=== PATIENT | female | born 1955 | race Caucasian/White ===

== ENCOUNTER 2016-11-13 12:01 | Observation (INO) | payer MEDICARE, OTHER ==
[~2016-11-13] VITALS: Ht 152.4 cm; Wt 74.1 kg
--- NOTE | 2016-11-13 12:17 | ERA ---
ER Documentation Chief Complaint Date/Time DATE: 11/13/16 TIME: 12:17 Chief Complaint chest pain HPI The patient is a 61-year-old female, presenting with left sided chest pressure intermittently for the last 3 days, worse about 1 hour prior to arrival, associated with palpitation, and left arm numbness, 10. She was treated with aspirin 325 mg p.o. and one nitroglycerin spray with good response. She denies any chest pain or pressure at this time. She denies chest pain with exertion or vomiting or diaphoresis. She denies abdominal pain, vomiting, dysuria, diarrhea. She does not smoke nor drink Past medical history: Hypertension, diabetes mellitus, history of thyroid cancer Past surgical history: Thyroid surgery ROS All systems reviewed and are negative except as per history of present illness. Physical Exam Vitals Vital Signs Date Time Temp Pulse Resp B/P Pulse Ox O2 Delivery O2 Flow Rate FiO2 11/13/16 12:47 75 16 159/74 98 Room Air 11/13/16 12:17 98.5 95 18 203/106 98 Physical Exam Const: No acute distress. Head: Atraumatic. Eyes: Normal Conjunctiva. ENT: Normal External Ears, Nose and Mouth. Neck: Full range of motion. No meningismus. Resp: Clear to auscultation bilaterally. Cardio: Regular rate and rhythm, no murmurs. Abd: Soft, non distended, normal bowel sounds, non tender. Skin: No petechiae or rashes. Back: No midline or flank tenderness. Ext: No cyanosis, or edema. Neur: Awake and alert. No focal deficit Psych: Normal Mood and Affect. Result Diagram: 11/13/16 1230 11/13/16 1230 Results 24 hrs Laboratory Tests Test 11/13/16 12:30 Activated Partial Thromboplast Time 26.9Sec Anion Gap 17 Basophils # 0.010^3/ul Basophils % 0.3% Blood Urea Nitrogen 17mg/dl Calcium Level 9.2mg/dl Carbon Dioxide Level 28mmol/L Chloride Level 102mmol/L Creatinine 0.68mg/dl Eosinophils # 0.110^3/ul Eosinophils % 0.9% Glucose Level 137mg/dl Hematocrit 39.9% Hemoglobin 13.8g/dl INR International Normalized Ratio 0.97 Lymphocytes # 3.010^3/ul Lymphocytes % 37.0% Mean Corpuscular Hemoglobin 29.0pg Mean Corpuscular Hemoglobin Concent 34.5g/dl Mean Corpuscular Volume 84.2fl Mean Platelet Volume 9.7fl Monocytes # 0.610^3/ul Monocytes % 6.9% Neutrophils # 4.410^3/ul Neutrophils % 54.9% Nucleated Red Blood Cells # 0.010^3/ul Nucleated Red Blood Cells % 0.0/100WBC Platelet Count 35794^3/UL Potassium Level 3.9mmol/L Prothrombin Time 12.9Sec Prothrombin Time Ratio 1.0 Red Blood Count 4.7410^6/ul Red Cell Distribution Width 12.7% Sodium Level 143mmol/L Troponin I < 0.012ng/ml White Blood Count 8.010^3/ul Current Medications Medications (Trade) Dose Ordered Sig/Zacarias Route PRN Reason Start Time Stop Time Status Last Admin Dose Admin Nitroglycerin (Nitroglycerin 2% Oint) 1 inch ONCE ONCE TD 11/13/16 14:00 11/13/16 14:01 Procedures/MDM EKG: Read by emergency physician Rate/Rhythm: Normal Sinus Rhythm 78 beats per min QRS, ST, T-waves: No ST elevation, no T wave inversion, LAD, inferior Q waves Impression: Abnormal EKG [place] [id number] Radiology Main Line: [phone] DIAGNOSTIC IMAGING REPORT Patient: MALICK JOSEPH : 1955 Age: 61 Sex: F MR #: [id number] DOS: 11/13/16 [facility] Ordering MD: RAUL AMBROSIO MD Location: E/R Room/Bed: PROCEDURE: XR Chest AP portable CLINICAL INDICATION: Chest pain TECHNIQUE: An AP portable radiograph of the chest was submitted. COMPARISON: None. FINDINGS: Support Hardware: None Cardiovascular: The cardiovascular silhouette appears unremarkable. Lung Curry: The lung curry appear clear with no nodule, alveolar infiltrate, for a interstitial prominence evident. Pleural Spaces: No pneumothorax or pleural effusion is identified. Osseous Structures: The osseous structures appear intact. Soft Tissues: The soft tissues appear generous. IMPRESSION: Unremarkable portable chest. Physician Matt Date Time Electronically viewed and signed by Physician Matt on 11/13/2016 12:37 RH/ CC: RAUL AMBROSIO MD MEDICAL MAKING DECISION: The patient is a 61-year-old female with multiple cardiac risk factors, presenting with acute chest pain that is concerning for ACS. She was treated with 1 inch of nitroglycerin ointment with good response. The differential diagnoses considered include but are not limited to acute coronary syndrome, acute myocardial infarction, pericarditis, pulmonary embolism , aortic dissection, pneumonia, pleural effusion, pneumothorax, GERD, chest wall pain. Departure Diagnosis: Primary Impression: Chest pain Condition: Stable Comments I discussed the findings with the patient. I discussed the patient with the on- call hospitalist Dr. Sims who was made aware of the lab, the treatment, the patient condition. The patient is admitted to telemetry at 1:45 PM RAUL AMBROSIO MD Nov 13, 2016 12:17
--- NOTE | 2016-11-13 12:38 | RADRPT ---
PROCEDURE: XR Chest AP portable CLINICAL INDICATION: Chest pain TECHNIQUE: An AP portable radiograph of the chest was submitted. COMPARISON: None. FINDINGS: Support Hardware: None Cardiovascular: The cardiovascular silhouette appears unremarkable. Lung Carroll: The lung carroll appear clear with no nodule, alveolar infiltrate, for a interstitial pr ominence evident. Pleural Spaces: No pneumothorax or pleural effusion is identified. Osseous Structures: The osseous structures appear intact. Soft Tissues: The soft tissues appear generous. IMPRESSION: Unremarkable portable chest. Physician Matt Date Time Electronically viewed and signed by Andrez Reyes Physician on 11/13/2016 12:37 RH/
[2016-11-13 12:43] LABS: BASOPHILS % 0.3 % (0.0-2.0); EOSINOPHILS # 0.1 10^3/ul (0.0-0.5); EOSINOPHILS % 0.9 % (0.0-7.0); HEMATOCRIT 39.9 % (37.0-47.0); HEMOGLOBIN 13.8 g/dl (12.0-16.0); MEAN CORPUSCULAR HGB CONC 34.5 g/dl (32.0-37.0); MEAN CORPUSCULAR VOLUME 84.2 fl (82.0-101.0); MEAN PLATELET VOLUME 9.7 fl (7.4-10.4); MONOCYTE # 0.6 10^3/ul (0.3-0.9); MONOCYTES % 6.9 % (0.0-11.0); NEUTROPHIL # 4.4 10^3/ul (1.6-7.5); NEUTROPHILS % 54.9 % (39.0-77.0); PLATELET COUNT 208 10^3/UL (140-440); RED BLOOD COUNT 4.74 10^6/ul (4.20-5.40); RED CELL DISTRIBUTION WIDTH 12.7 % (11.5-14.5)
[2016-11-13 12:46] LABS: CONDITION 1
[2016-11-13 13:13] LABS: INR 0.97; PROTIME 12.9 Sec (12.2-14.2)
[2016-11-13 13:14] LABS: PARTIAL THROMBOPLASTIN TIME 26.9 Sec (25.0-35.0)
[2016-11-13 13:19] LABS: CHLORIDE 102 mmol/L (97-110); SODIUM 143 mmol/L (135-144)
[2016-11-13 13:20] LABS: POTASSIUM 3.9 mmol/L (3.5-5.1)
[2016-11-13 13:22] LABS: ANION GAP 17 (8-16); BLOOD UREA NITROGEN 17 mg/dl (7-20); CARBON DIOXIDE 28 mmol/L (21-31); CREATININE 0.68 mg/dl (0.44-1.00)
[2016-11-13 13:23] LABS: CALCIUM 9.2 mg/dl (8.4-10.2); GLUCOSE 137 mg/dl (70-220)
[2016-11-13 13:37] LABS: TROPONIN-I < 0.012 ng/ml (0.00-0.12)
[2016-11-13] MEDS ORDERED: NITROGLYCERIN 2% 1 GM OINT PKT TD ONE (14:00)
[2016-11-13] MEDS ORDERED: METF1000 PO (14:31)
[2016-11-13] MEDS ORDERED: METO50TA16 PO (14:32)
[2016-11-13] MEDS ORDERED: ATOR20TA38 PO (14:32)
[2016-11-13] MEDS ORDERED: ASPI-664 PO (14:32)
[2016-11-13] MEDS ORDERED: NOVO7030 SC ×2 (14:33)
--- NOTE | 2016-11-13 17:11 | HP ---
Date/Time of Note Date/Time of Note DATE: 11/13/16 TIME: 16:59 Assessment/Plan VTE Prophylaxis VTE Prophylaxis Intervention: LMWH Lines/Catheters IV Catheter Type (from Nrs): Saline Lock Assessment/Plan Assessment/Plan 61 yo F with 1. Chest Pain r/o ACS 2. DM 2 3. Post surgical hypothyroidism PLAN: Telemetry admission, trend cardiac enzymes, 2d echo if none recently and possible cardiology consult for stress test. oxygen and nitroglycerin therapy as needed. Daily aspirin if no allergy or bleeding risk. Get lipid profile, magnesium and TSH levels in am. PROPHYLAXIS: pepcid / SCDs HPI/ROS Admit Date/Time Admit Date/Time 11/13/16 Hx of Present Illness PRESENTING COMPLAINT: Chest pain HISTORY OF PRESENTING COMPLAINT: 61 yo F with a PMH of HTN and DM who presents to ER with a 1 day hx of L sided CP, pressure like, no hx of similar and relieved by asa and nitro given in ER. She is being admitted for further workup. ROS 12 point review if systems was done and pertinent findings are as noted. Constitutional: No fatigue, No nausea, No poor po ENT: no complaints Respiratory: no complaints Gastrointestinal: no complaints Skin: no complaints Neurologic: no complaints Psychological: anxiety PMH/Family/Social Past Medical History Past medical history: Hypertension, diabetes mellitus, history of thyroid cancer Past Surgical History Past surgical history: Thyroid surgery Family History Significant Family History: heart disease, hypertension Social History Alcohol Use: none Smoking Status: Never smoker (but exposed to heavy secondhand smoke) Drug Use: none Exam/Review of Systems Vital Signs Vitals VS - Last 72 Hours, by Label Date Time Temp Pulse Resp B/P Pulse Ox O2 Delivery O2 Flow Rate FiO2 11/13/16 16:49 75 18 140/73 98 Room Air 11/13/16 14:50 71 18 150/85 100 Room Air 11/13/16 12:47 75 16 159/74 98 Room Air 11/13/16 12:17 98.5 95 18 203/106 98 Vital Signs Date Time Temp Pulse Resp B/P Pulse Ox O2 Delivery O2 Flow Rate FiO2 11/13/16 16:49 75 18 140/73 98 Room Air 11/13/16 12:17 98.5 Exam Head: atraumatic, normocephalic Eyes: nl conjunctiva ENMT: mucosa pink and moist Neck: supple Respiratory: clear to auscultation Cardiovascular: regular rate and rhythm, No murmurs/extra sounds Gastrointestinal: bowel sounds, non-tender, soft Musculoskeletal: nl extremities to inspection Neurological: nl mental status, nl speech, No focal weakness Labs Result Diagram: 11/13/16 1230 11/13/16 1230 Procedures Procedures Laboratory Tests Test 11/13/16 12:30 11/13/16 16:21 Activated Partial Thromboplast Time 26.9Sec Anion Gap 17 Basophils # 0.010^3/ul Basophils % 0.3% Blood Urea Nitrogen 17mg/dl Calcium Level 9.2mg/dl Carbon Dioxide Level 28mmol/L Chloride Level 102mmol/L Creatinine 0.68mg/dl Eosinophils # 0.110^3/ul Eosinophils % 0.9% Glucose Level 137mg/dl Hematocrit 39.9% Hemoglobin 13.8g/dl INR International Normalized Ratio 0.97 Lymphocytes # 3.010^3/ul Lymphocytes % 37.0% Mean Corpuscular Hemoglobin 29.0pg Mean Corpuscular Hemoglobin Concent 34.5g/dl Mean Corpuscular Volume 84.2fl Mean Platelet Volume 9.7fl Monocytes # 0.610^3/ul Monocytes % 6.9% Neutrophils # 4.410^3/ul Neutrophils % 54.9% Nucleated Red Blood Cells # 0.010^3/ul Nucleated Red Blood Cells % 0.0/100WBC Platelet Count 19617^3/UL Potassium Level 3.9mmol/L Prothrombin Time 12.9Sec Prothrombin Time Ratio 1.0 Red Blood Count 4.7410^6/ul Red Cell Distribution Width 12.7% Sodium Level 143mmol/L Troponin I < 0.012ng/ml White Blood Count 8.010^3/ul Bedside Glucose 61mg/dL Current Medications Medications (Trade) Dose Ordered Sig/Zacarias Route PRN Reason Start Time Stop Time Status Last Admin Dose Admin Nitroglycerin (Nitroglycerin 2% Oint) 1 inch ONCE ONCE TD 11/13/16 14:00 11/13/16 14:01 DC 11/13/16 14:50 1 INCH PROCEDURE: XR Chest AP portable CLINICAL INDICATION: Chest pain TECHNIQUE: An AP portable radiograph of the chest was submitted. COMPARISON: None. FINDINGS: Support Hardware: None Cardiovascular: The cardiovascular silhouette appears unremarkable. Lung Carroll: The lung carroll appear clear with no nodule, alveolar infiltrate, for a interstitial prominence evident. Pleural Spaces: No pneumothorax or pleural effusion is identified. Osseous Structures: The osseous structures appear intact. Soft Tissues: The soft tissues appear generous. IMPRESSION: Unremarkable portable chest. Andrez Reyes, Physician Date Time Electronically viewed and signed by Andrez Reyes Physician on 11/13/2016 12:37 I reviewed EKG Rate / Rhythm: Normal Sinus Rhythm 78 beats per min QRS, ST, T-waves: No ST elevation, no T wave inversion, LAD, inferior Q waves Note: Abnormal EKG MARYANN STRICKLAND 20, 2017 17:09
[2016-11-13] MEDS ORDERED: GLUCOSE GEL 15 GRAM TUBE BUCCAL PRN (18:00)
[2016-11-13] MEDS ORDERED: GLUCOSE GEL 15 GRAM TUBE PO PRN ×2 (18:00)
[2016-11-13] MEDS ORDERED: DEXTROSE 50% 50 ML SYRINGE IV PRN ×2 (18:00)
[2016-11-13] MEDS ORDERED: GLUCAGON 1 MG INJ IM PRN (18:00)
[2016-11-13 19:35] LABS: CREATINE KINASE 33 IU/L (23-200)
[2016-11-13 19:45] LABS: CK-MB 0.48 ng/ml (0.0-2.4)
[2016-11-13] MEDS: INSULIN ASPART [NOVOLOG] 3 ML PEN SC SCH ×3 (19:46→19:54)
[2016-11-13] MEDS: metFORMIN 500 MG TAB PO SCH (19:47)
[2016-11-13] MEDS: METOPROLOL 50 MG TAB PO SCH (19:47)
--- NOTE | 2016-11-13 19:51 | CONS ---
DATE OF ADMISSION: 11/13/2016 DATE OF CONSULTATION: TYPE OF CONSULTATION: Cardiology. REFERRING: Dr. Strickland. REASON FOR CONSULTATION: Chest pain. CHIEF COMPLAINT: Chest pain and palpitation. HISTORY OF PRESENT ILLNESS: Thank you for this referral. History obtained from the patient, in dis cussion with her family. This is a pleasant 58-year-old [place] female with history of hypertensio n, diabetes, dyslipidemia, who presented complaint. The patient said she was she starte d having severe anterior chest pressure. It lasted about 15 minutes or so. The primary care gave h er medication. It went away. She also had palpitations, and her heart was beating very fast. The patient said she has had palpitation before, has had workup for arrhythmia including a stress test d one about a year ago in some doctor's private office, which was negative. The pain has resolved now . The patient denies any exertional chest pain normally, but is not very active. PAST MEDICAL HISTORY: Diabetes, hypertension, dyslipidemia, history of thyroid disorder. SURGICAL HISTORY: Status post thyroid surgery. SOCIAL HISTORY: The patient denies any active tobacco, alcohol, or drug abuse. FAMILY HISTORY: The patient denies any family history of coronary artery disease. ALLERGIES: PENICILLIN. MEDICATIONS AT HOME: Include: 1. Lipitor. 2. Toprol-XL 50. 3. Aspirin. 4. Insulin. 5. Metformin. REVIEW OF SYSTEMS: She denied all other except for above-mentioned. PHYSICAL EXAMINATION: VITAL SIGNS: Temperature 98.5, heart rate of 75, blood pressure 140/75, respiration rate of 18, sat urating 98%. Blood pressure on admission was 203/106. HEENT: Normocephalic, atraumatic, , in no acute distress. Pupils equal and round. CARDIOVASCULAR: Regular rate and rhythm, systolic murmur. PULMONARY: With no wheezes or rhonchi. GASTROINTESTINAL: Soft, nontender. EXTREMITIES: With lower extremity edema. NEUROLOGIC: Awake, alert x3, nonfocal. PSYCHIATRIC: Calm and very pleasant. DERMATOLOGIC: With no active bleeding sites. IMAGING: EKG shows normal sinus rhythm, poor R-wave progression, low voltage. Chest x-ray shows un remarkable portable chest x-ray. LABORATORY: Showed cardiac enzymes negative x1. Troponin less than 0.012. Sodium 143, potassium 3 .9, BUN of 17, creatinine 0.67, glucose of 137. WBC of 8.0, hemoglobin 13.8, platelets of 208. ASSESSMENT AND PLAN 1. Chest pain syndrome, rule acute coronary syndrome. 2. Diabetes. 3. Hypertension. 4. Palpitations, rule out arrhythmia. 5. History of dyslipidemia. 6. Obesity. 7. History of thyroid disorder. RECOMMENDATIONS: Serial cardiac enzymes will be obtained to rule out myocardial infarction. Current ly, patient is completely chest pain-free. Her home beta blockers, statin, aspirin was initiated al ready and will be continued. Diabetic management as per internal medicine. Lexiscan test will be o rdered for tomorrow as long as the cardiac enzymes are negative. Echocardiogram has been ordered pr eviously already. We will continue to follow along with you. Thank you for this referral. Dictated By: LEIGHA OTT MD AV/NTS Conf#: [id number] DID#: [id number] CC: MARYANN STRICKLAND MD;*EndCC*
[2016-11-13 19:54] LABS: TROPONIN-I < 0.012 ng/ml (0.00-0.12)
[2016-11-13] MEDS ORDERED: INSULIN GLARGINE [LANtus] 3 ML PEN SC SCH (20:00)
[2016-11-13] MEDS ORDERED: ATORVASTATIN 20 MG TAB PO SCH (21:00)
[2016-11-13 21:02] VITALS: PULSE 71
[2016-11-13 21:16] VITALS: BP_SYST 151; BP_SYST 176; BP_DIAS 67; BP_DIAS 81; RESP 20
[2016-11-13 21:37] LABS: ADD UMIC NO; URINE BILIRUBIN (Dip) NEGATIVE (NEGATIVE); URINE BLOOD (Dip) NEGATIVE (NEGATIVE); URINE COLOR LT. YELLOW (YELLOW); URINE KETONES (Dip) NEGATIVE (NEGATIVE); URINE LEUKOCYTE ESTERASE (Dip) NEGATIVE (NEGATIVE); URINE NITRITE (Dip) NEGATIVE (NEGATIVE); URINE TOTAL PROTEIN (Dip) NEGATIVE (NEGATIVE); URINE UROBILINOGEN (Dip) 0.2 E.U./dL (0.1-1.0)
[2016-11-13 22:00] VITALS: Ht 152.4 cm; Wt 74.1 kg
[2016-11-13] MEDS ORDERED: ACETAMINOPHEN 325 MG TAB PO PRN (22:30)
[2016-11-14] VITALS (10 sets, daily range): BP systolic 114–143; BP diastolic 59–77; PULSE 65–84; RESP 15–18
[2016-11-14 01:10] LABS: CREATINE KINASE 32 IU/L (23-200)
[2016-11-14 01:19] LABS: CK-MB 0.36 ng/ml (0.0-2.4)
[2016-11-14 01:22] LABS: TROPONIN-I < 0.012 ng/ml (0.00-0.12)
[2016-11-14 07:24] LABS: ALBUMIN 3.8 g/dl (3.3-4.9)
[2016-11-14 07:25] LABS: POTASSIUM 4.2 mmol/L (3.5-5.1)
[2016-11-14 07:27] LABS: BILIRUBIN,INDIRECT 0.2 mg/dl (0-1.1); BILIRUBIN,TOTAL 0.2 mg/dl (0.2-1.3); CREATININE 0.65 mg/dl (0.44-1.00); TOTAL PROTEIN 6.5 g/dl (6.1-8.1)
[2016-11-14 07:28] LABS: BASOPHILS % 0.4 % (0.0-2.0); CALCIUM 9.2 mg/dl (8.4-10.2); EOSINOPHILS # 0.1 10^3/ul (0.0-0.5); EOSINOPHILS % 1.4 % (0.0-7.0); HEMOGLOBIN 13.1 g/dl (12.0-16.0); LYMPHOCYTES # 3.2 10^3/ul (0.8-2.9); LYMPHOCYTES % 40.8 % (15.0-51.0); MAGNESIUM 1.8 mg/dl (1.7-2.5); MEAN CORPUSCULAR HEMOGLOBIN 29.2 pg (29.0-33.0); MEAN CORPUSCULAR HGB CONC 34.4 g/dl (32.0-37.0); MEAN CORPUSCULAR VOLUME 84.7 fl (82.0-101.0); MEAN PLATELET VOLUME 9.4 fl (7.4-10.4); MONOCYTE # 0.6 10^3/ul (0.3-0.9); MONOCYTES % 8.2 % (0.0-11.0); NEUTROPHIL # 3.8 10^3/ul (1.6-7.5); NEUTROPHILS % 49.2 % (39.0-77.0); PLATELET COUNT 205 10^3/UL (140-440); RED BLOOD COUNT 4.48 10^6/ul (4.20-5.40); UNCORRECTED WBC 7.8 10^3/ul (4.8-10.8); WHITE BLOOD COUNT 7.8 10^3/ul (4.8-10.8)
[2016-11-14 07:29] LABS: CHOL/HDL RATIO 3.8 RATIO
[2016-11-14 07:45] LABS: CONDITION 1
[2016-11-14 07:58] LABS: THYROID STIMULATING HORMONE 2.81 MIU/L (0.465-4.680)
[2016-11-14] MEDS: metFORMIN 500 MG TAB PO SCH (08:00)
[2016-11-14] MEDS: INSULIN ASPART [NOVOLOG] 3 ML PEN SC SCH ×4 (08:00→14:06)
[2016-11-14] MEDS: METOPROLOL 50 MG TAB PO SCH (08:05)
[2016-11-14] MEDS ORDERED: ENOXAPARIN 40 MG/0.4 ML SYG SC SCH (09:00)
[2016-11-14] MEDS ORDERED: ASPIRIN (EC) 81 MG TAB PO SCH (09:00)
[2016-11-14] MEDS ORDERED: REGADENOSON 0.4 MG/5 ML SYG ONE (09:21)
--- NOTE | 2016-11-14 09:32 | RADRPT ---
Echocardiogram Report Patient Name: MALICK JOSEPH Gender: Female Date: 1955 Study Date: 14-Nov-2016 [employer] Clerk: Chandler Parker [facility] Location: 5548 Ref. Physician: LEIGHA PERALES Quality: Good Procedures: Transthoracic echocardiogram with complete 2D, M-Mode, and doppler examination. Indications: Chest Pain. 2D/M Mode Doppler Measurement Value Normal Ranges Measurement Value Normal Ranges LVIDd 2D 4.8 3.5 - 5.6 cm AV Peak Jose 1.4 m/sec LVIDs 2D 2.8 2.1 - 4.1 cm AV Peak PG 7.0 mmHg FS 2D 42.9 % LVOT Peak Jose 0.8 m/sec LVPWd 2D 0.8 0.6 - 1.1 cm LVOT Peak PG 2.0 mmHg IVSd 2D 1.0 0.6 - 1.1 cm MV E Peak Jose 0.7 m/sec IVS/LVPW 2D 1.2 MV A Peak Jose 0.8 m/sec AoR Diam 2D 2.8 2.0 - 3.7 cm MV E/A 0.8 LA/Ao 2D 1 0 - 1 MV Decel Time 158 msec EDV 2D 112.0 cm3 MV E/A 0.8 ESV 2D 20.8 cm3 TR Peak Jose 2.2 m/sec LA Dimen 2D 3.4 2.3 - 4.0 cm TR Peak PG 20.0 mmHg RVSP 23.0 mmHg Findings Left Ventricle: Normal left ventricular systolic function. Normal left ventricular cavity size. Normal left ventricular wall thickness. Ejection fraction is visually estimated at 65 %. Tissue Doppler/Mitral Doppler indices are consistent with impaired relaxation (Stage I diastolic dysfunction). Right Ventricle: Normal right ventricular size. Normal right ventricular systolic function. Left Atrium: The left atrium is normal in size. Right Atrium: The right atrium is normal in size. Mitral Valve: Mitral valve leaflets appear mildly thickened. Mild mitral annular calcification. Trace mitral regurgitation. Aortic Valve: Normal appearance of the aortic valve. No significant aortic stenosis or insufficiency. Tricuspid Valve: Normal appearance of the tricuspid valve. Estimated peak PA systolic pressure 23 mmHg. There is trace tricuspid regurgitation. Pulmonic Valve: Normal pulmonic valve appearance. Pericardium: Normal pericardium with no significant pericardial effusion. Aorta: Normal aortic root. IVC: Normal size and normal respiratory collapse consistent with normal right atrial pressure. Conclusions 1.Normal left ventricular systolic function. Normal left ventricular cavity size. Normal left ventricular wall thickness. Ejection fraction is visually estimated at 65 %. Tissue Doppler/Mitral Doppler indices are consistent with impaired relaxation (Stage I diastolic dysfunction). 2.The left atrium is normal in size. 3.Mitral valve leaflets appear mildly thickened. Mild mitral annular calcification. Trace mitral regurgitation. 4.Normal appearance of the aortic valve. No significant aortic stenosis or insufficiency. 5.Normal appearance of the tricuspid valve. Estimated peak PA systolic pressure 23 mmHg. There is trace tricuspid regurgitation. Electronically Signed By: Leigha Perales 14-Nov-2016 09:30:42 -0800 Patient Name: MALICK JOSEPH Study Date: 14-Nov-2016 [id number]
--- NOTE | 2016-11-14 11:51 | PN ---
DATE: 11/14/2016 CARDIOLOGY FOLLOWUP NOTE SUBJECTIVE: The patient with no chest pain or pressure overnight. No palpitations, feeling better. MEDICATIONS: Reviewed as per medical reconciliation, personally reviewed. PHYSICAL EXAMINATION: VITAL SIGNS: Temperature 97.9, heart rate of 81, blood pressure 122/66, respiratory rate of 18, sat urating 98%. HEENT: Normocephalic, atraumatic. Pupils are equal. CARDIOVASCULAR: Regular rate and rhythm. PULMONARY: With no wheezes. GASTROINTESTINAL: Soft, nontender. EXTREMITIES: Trivial edema. NEUROLOGIC: Awake and alert. PSYCHIATRIC: Appears to be calm and pleasant. LABORATORY: WBC of 7.8, hemoglobin 13.1, platelets of 205. Sodium 142, potassium 4.2, BUN of 20, c reatinine 0.65, glucose of 140. Cholesterol 172, LDL of 88, HDL 45. ASSESSMENT AND PLAN 1. Chest pain syndrome, rule acute coronary syndrome. 2. Hypertension. 3. Diabetes. 4. History of palpitation, currently remains in sinus. 5. Dyslipidemia. 6. Obesity. 7. Thyroid disorder. RECOMMENDATIONS: We will continue with the current cardiac care. Lexiscan test has been scheduled for today. Echocardiogram was obtained which was personally reviewed, showed normal LV systolic func tion. Discharge planning if the stress test is negative, otherwise if stress test shows an abnormal ity including significant ischemia, we will plan for the cardiac catheterization. Dictated By: LEIGHA OTT MD AV/PEGGY Conf#: [id number] DID#: [id number] CC: MARYANN STRICKLAND MD;*End*
--- NOTE | 2016-11-14 12:39 | RADRPT ---
PROCEDURE: Nuclear medicine myocardial perfusion scan CLINICAL INDICATION: Chest pain TECHNIQUE: 29.9 mCi of technetium 99m Cardiolite was administered for the stress study. 10.3 mCi of technetium 99m Cardiolite was administered for the resting study. The patient was stressed with 0 .4 mg of Lexiscan. Images were reviewed in the short axis, vertical long axis, and horizontal long axis views. Wall motion was assessed and ejection fraction was calculated as well. Images were revi ewed on a high-resolution PACS workstation. COMPARISON: None available FINDINGS: Left ventricular size is within normal limits. There is moderate soft tissue and bowel attenuation artifact. The stress tomographic images demonstrate a normal pattern of perfusion. The resting evert ographic images demonstrate a similar pattern. There is no evidence for reversible ischemia. Wall motion is normal. The ejection fraction is calculated at 78%. IMPRESSION: 1. Negative myocardial perfusion scan. 2. There is no evidence for reversible ischemia. 3. Normal wall motion with normal ejection fraction of 78%. RPTAT: HMJB .Enoch Brandt MD, MD Date Time Electronically viewed and signed by .Enoch Brandt MD, MD on 11/14/2016 12:39 .B/
[2016-11-14] MEDS ORDERED: MAGNESIUM CITRATE 300 ML BTL PO ONE (14:00)
[2016-11-14] MEDS ORDERED: NOVO3I SC ×2 (14:43→17:23)
[2016-11-14] MEDS ORDERED: LANT3I SC (14:43)
[2016-11-14] MEDS ORDERED: BENA20TA48 PO (14:43)
[2016-11-14] MEDS ORDERED: ATOR20TA38 PO (14:43)
--- NOTE | 2016-11-14 14:44 | PDOCDIS ---
Discharge Instructions DIAGNOSIS Discharge Diagnosis: Angina CONDITION Patient Condition: Stable HOME CARE INSTRUCTIONS: Special Diet: 1800 calorie diet ACTIVITY: Activity Restrictions: Slowly Increase Activity Rest between Activity FOLLOW UP/APPOINTMENTS Appointments Followup with your primary doctor within the next 1-2 weeks. If you don't have one please let someone know, we can give you resources that may help you pick one. You may also call your insurance company to assign one to you. Review your medication list with your nurse before leaving and if you need new prescriptions please let your nurse know. I may have made changes to your home medications or given you new prescriptions , please let your primary doctor know as well. Stay compliant with your medications and report any side effects to your PCP or pharmacist. Return to the ER if you have any concerns and cannot reach your doctors or call your insurance company, they usually have a nurse that can help you. MARYANN STRICKLAND Nov 14, 2016 14:44
[2016-11-14] MEDS ORDERED: DOCUSATE SODIUM 100 MG CAP PO SCH (21:00)
--- NOTE | 2016-11-15 07:04 | DS ---
DATE OF ADMISSION: 11/13/2016 DATE OF DISCHARGE: 11/14/2016 ADMISSION DIAGNOSES: 1. Left-sided chest pain, rule out an acute coronary syndrome. 2. Type 2 diabetes mellitus with suboptimal control. 3. Postsurgical hypothyroidism. DISCHARGE DIAGNOSES: 1. Left-sided chest pain, resolved, likely secondary to angina. 2. Poorly controlled diabetes mellitus with hemoglobin A1c of 8.0 with adjustment to medications. 3. Dyslipidemia. 4. Well-controlled postsurgical hypothyroidism. INTERVENTIONS: Include: 1. Nuclear medicine stress test that was negative for reversible ischemia. Normal wall motion with normal ejection fraction of 78%. 2. Unremarkable chest x-ray. CIRCULATION CLERK ON THE CASE: Dr. Elliot Perales. She also had a 2D echocardiogram that showed EF of 65%, stage I diastolic dysfunction without significant valvular deficits. SHORT OSPITALIZATION COURSE: The patient presented with chest pain that was resolved with use of as pirin and nitro and was admitted to rule out an acute coronary syndrome. Once that was ruled out, s he underwent a nuclear medicine stress test that basically came back negative. However, she was fou nd to have poor control of her diabetes and suboptimal control of her dyslipidemia. LDL goal is les s than 70. Her triglyceride level was elevated as well as her HDL was at goal at 45. Based on this , her diabetic regimen was changed from Humulin 70/30 to NovoLog and to basal Lantus as well as michael eal NovoLog, and her statin dose was increased, and also an MARJAN inhibitor was added to her regimen. She has been cleared from audit consultant's standpoint at this time and is being discharged home on the following medications in stable condition. DISCHARGE MEDICATIONS: 1. Benazepril 20 mg daily. 2. NovoLog 8 units with meals. 3. Lantus 28 units subQ daily. 4. Aspirin 81 mg p.o. daily. 5. Metformin 1 gram p.o. b.i.d. 6. Metoprolol 50 mg daily. XL was continued. Benazepril 20 mg daily was added to her regimen. For clarifications, further information, please review the patient's chart. Plan of care has been d iscussed with patient and her sons, questions have been answered. Overall discharge time has been about 40 minutes. Dictated By: MARYANN STRICKLAND MD, BA/PEGGY Conf#: [id number] [facility]#: [id number]
--- NOTE | 2016-11-15 07:14 | TMLRPT ---
DATE: 11/14/2016 PROCEDURE: Lexiscan. INDICATION: Chest pain. DESCRIPTION: Lexiscan was performed baseline EKG. Normal sinus rhythm. Heart rate baseline 65, blood pressure 158/81. No significant ischemia seen. No arrhythmia seen. CONCLUSION: Completion of Lexiscan. Dictated By: LEIGHA ROLDAN/PEGGY Conf#: [id number] DID#: [id number]
== END 2016-11-14 17:25 | disposition home or self-care (01) ==
LOC: E/R 12:01 → INTOOBSV 13:53 → MS4 13:53
PROVIDERS: ADMIT Family Medicine; ATTEND Family Medicine
DX: R07.9 Chest pain, unspecified (principal); E11.9 Type 2 diabetes mellitus without complications; E78.5 Hyperlipidemia, unspecified; E89.0 Postprocedural hypothyroidism; I10 Essential (primary) hypertension; Z85.850 Personal history of malignant neoplasm of thyroid; E66.9 Obesity, unspecified; Z68.31 Body mass index [BMI] 31.0-31.9, adult; Z79.82 Long term (current) use of aspirin; Z79.4 Long term (current) use of insulin
CPT/HCPCS: 36415; 71010; 78452; 80048; 80061; 80076; 81003; 82550; 82553; 82962; 83036; 83735; 84443; 84484; 85025; 85610; 85730; 93005; 93017; 93306; 96372; 99285; A9500; A9505; G0378; J1650; J1815; J2785

== ENCOUNTER 2017-09-20 05:16 | Emergency (ER) | END 2017-09-20 07:25 | disposition home or self-care (01) ==